=== PATIENT | female | born 1995 | race Caucasian/White ===

== ENCOUNTER 2017-11-14 19:34 | Emergency (ER) | payer OTHER ==
[2017-11-14 19:49] VITALS: BP 122/82
[2017-11-14] MEDS ORDERED: DEXAMETHASONE 10 MG/ML VIAL PO STA (20:37)
--- NOTE | 2017-11-14 20:41 | ED Physician Documentation ---
PD HPI HEENT - Stated complaint Stated Complaint: THROAT/EAR PX - Chief complaint Chief Complaint: Heent - History obtained from History obtained from: Patient - History of Present Illness Timing - onset: Other (2-3 days of sore throat, worse on the left with myalgias and chills. Today he has had some left-sided headaches as well. No cough or runny nose.) Review of Systems Constitutional: reports: Fever, Chills, Myalgias, Fatigue, Sweats Ears: denies: Ear pain Nose: denies: Rhinorrhea / runny nose Throat: reports: Sore throat PD PAST MEDICAL HISTORY - Past Medical History Past Medical History: No Cardiovascular: None Respiratory: None Neuro: None Endocrine/Autoimmune: None GI: None BOAT CARPENTER: None : None HEENT: None Psych: None Musculoskeletal: None Derm: None - Past Surgical History Past Surgical History: No - Present Medications Home Medications: Ambulatory Orders Medication Instructions Recorded Confirmed Testosterone Cypionate 11/14/17 [Depo-Testosterone] - Allergies Allergies/Adverse Reactions: Allergies Allergy/AdvReac Type Severity Reaction Status Date / Time No Known Drug Allergies Allergy Verified 11/14/17 19:48 - Social History Does the pt smoke?: Yes Smoking Status: Current every day smoker Does the pt drink ETOH?: Yes Does the pt have substance abuse?: No - Immunizations Immunizations are current?: Yes - POLST Patient has POLST: No PD ED PE NORMAL - Vitals Vital signs reviewed: Yes - General General: Alert and oriented X 3, No acute distress - HEENT HEENT: PERRL, EOMI, Ears normal, Other (Tonsillar pillars are red with some ulcers consistent viral pharyngitis, she does have anterior cervical adenopathy , supple neck.) - Derm Derm: No rash - Neuro Neuro: Alert and oriented X 3, Normal speech Results - Vitals Vitals: Vital Signs - 24 hr 11/14/17 11/14/17 19:45 21:05 Temperature 38.0 C H Heart Rate 79 Respiratory 18 17 Rate Blood Pressure 122/82 H O2 Saturation 99 Oxygen O2 Source Room air - Labs Labs: Laboratory Tests 11/14/17 11/14/17 20:05 20:48 Infectious Hart Assay NEGATIVE Group A Strep Rapid Negative Departure - Departure Disposition: 01 Home, Self Care Clinical Impression: Viral pharyngitis Condition: Good Record reviewed to determine appropriate education?: Yes Instructions: ED Pharyngitis Viral Report Pending Comments: Ibuprofen as needed for pain, drink plenty of fluids. Return if worse. Should be much better by Friday.
[2017-11-14] MEDS ORDERED: HYDROcod/ACETAM 5/325 MG TABLET PO STA (20:53)
[2017-11-14] MEDS ORDERED: CHERRY SYRUP 10 ML UDC PO ONE (20:53)
[2017-11-14] MEDS ORDERED: HYDROcod/ACET 5/325 Prepack 4 PO STA (21:17)
== END 2017-11-14 21:32 | disposition home or self-care (01) ==
LOC: ED 19:34
DX: J02.8 Acute pharyngitis due to other specified organisms (principal); B97.89 Other viral agents as the cause of diseases classified elsewhere; F17.200 Nicotine dependence, unspecified, uncomplicated
CPT/HCPCS: 86308; 87070; 87077; 87430; 99283; A9270

== ENCOUNTER 2017-11-16 10:35 | Emergency (ER) | payer OTHER ==
--- NOTE | 2017-11-16 11:21 | ED Physician Documentation ---
History of Present Illness - Stated complaint Stated Complaint: SORE THROAT - Chief complaint Chief Complaint: Heent - History obtained from History obtained from: Patient - History of Present Illness Timing: How many days ago (3) Pain level max: 6 Pain level now: 4 Improved by: rest Worsened by: swallowing - Additonal information Additional information: States has had a sore throat x 4 days. Seen here 2 days ago for same. States not improved yet. Subjective fevers at home. Not taking anything for the sore throat. Review of Systems Constitutional: reports: Fever Ears: denies: Ear pain Nose: denies: Rhinorrhea / runny nose, Congestion Cardiac: denies: Chest pain / pressure GI: denies: Nausea, Vomiting, Diarrhea : denies: Now EGA Skin: denies: Rash Musculoskeletal: denies: Neck pain, Back pain Neurologic: denies: Headache PD PAST MEDICAL HISTORY - Past Medical History Cardiovascular: None Respiratory: None Neuro: None Endocrine/Autoimmune: None GI: None MEAT INSPECTOR: None : None HEENT: None Psych: None Musculoskeletal: None Derm: None - Past Surgical History Past Surgical History: No - Present Medications Home Medications: Ambulatory Orders Medication Instructions Recorded Confirmed Testosterone Cypionate 11/14/17 [Depo-Testosterone] Ibuprofen [Motrin] 800 mg PO Q8H PRN #30 tablet 11/16/17 Penicillin V Potassium 500 mg PO Q6HR #40 tablet 11/16/17 - Allergies Allergies/Adverse Reactions: Allergies Allergy/AdvReac Type Severity Reaction Status Date / Time No Known Drug Allergies Allergy Verified 11/14/17 19:48 - Social History Does the pt smoke?: Yes Smoking Status: Current every day smoker Does the pt drink ETOH?: Yes Does the pt have substance abuse?: No - Immunizations Immunizations are current?: Yes - POLST Patient has POLST: No PD ED PE NORMAL - Vitals Vital signs reviewed: Yes - General General: Alert and oriented X 3, No acute distress - HEENT HEENT: PERRL, Ears normal, Moist mucous membranes, Other (Moderate posterior oropharyngeal erythema with tonsillar exudates. Uvula midline. Normal phonation. No trismus) - Neck Neck: Supple, no meningeal sign, Other (Shotty anterior lymphadenopathy) - Cardiac Cardiac: RRR - Respiratory Respiratory: No respiratory distress, Clear bilaterally - Abdomen Abdomen: Soft, Non tender, Non distended, No organomegaly - Back Back: No CVA TTP - Derm Derm: Warm and dry, No rash - Neuro Neuro: Alert and oriented X 3 - Psych Psych: Normal mood, Normal affect Results - Vitals Vitals: Vital Signs - 24 hr 11/16/17 11/16/17 10:39 11:59 Temperature 38.5 C H 39.1 C H Heart Rate 97 95 Respiratory 17 20 Rate Blood Pressure 130/76 111/75 O2 Saturation 99 100 Oxygen O2 Source Room air - Labs Labs: Laboratory Tests 11/16/17 10:46 Group A Strep Rapid Negative PD MEDICAL DECISION MAKING - ED course Complexity details: reviewed old records, reviewed results, re-evaluated patient , considered differential, d/w patient ED course: Patient is a 22-year-old female who presents to the emergency department with what appears to be streptococcal pharyngitis, group C strep grout of her last throat culture [address] on antibiotics and follow-up closely with her doctor. Also given dexamethasone here. She is well-appearing, nontoxic. No evidence of peritonsillar abscess. Patient counseled regarding signs and symptoms for which I believe and urgent re-evaluation would be necessary. Patient with good understanding of and agreement to plan and is comfortable going home at this time This document was made in part using voice recognition software. While efforts are made to proofread this document, sound alike and grammatical errors may occur. Departure - Departure Disposition: 01 Home, Self Care Clinical Impression: Strep pharyngitis Condition: Good Instructions: ED Strep Pharyngitis Conf Follow-Up: Provider,Other [Primary Care Provider] - Within 1 week Prescriptions: Penicillin V Potassium 500 mg PO Q6HR #40 tablet Ibuprofen [Motrin] 800 mg PO Q8H PRN #30 tablet PRN Reason: PAIN &/OR FEVER Comments: Return if you worsen. Take all antibiotics until gone. Drink plenty of fluids. Cold items such as popsicles will also help with the discomfort. Forms: Activity restrictions Discharge Date/Time: 11/16/17 12:03
[2017-11-16] MEDS ORDERED: DEXAMETHASONE 10 MG/ML VIAL PO STA (11:44)
[2017-11-16] MEDS ORDERED: IBUPROFEN 800 MG TABLET PO STA (11:55)
[2017-11-16 11:59] VITALS: BP 111/75
== END 2017-11-16 12:03 | disposition home or self-care (01) ==
LOC: ED 10:35
DX: J02.0 Streptococcal pharyngitis (principal); F17.200 Nicotine dependence, unspecified, uncomplicated
CPT/HCPCS: 87070; 87430; 99283; A9270

== ENCOUNTER 2017-11-18 17:22 | Emergency (ER) | payer OTHER ==
--- NOTE | 2017-11-18 18:49 | ED Physician Documentation ---
PD HPI URI - Stated complaint Stated Complaint: CHEST WALL PX/BURNING - Chief complaint Chief Complaint: General - History obtained from History obtained from: Patient - History of Present Illness Timing - onset: How many days ago (5-6) Timing duration: Days Timing details: Abrupt onset, Still present Associated symptoms: Fever, Sore throat, Swollen nodes Contributing factors: No: Sick contact, Travel, Immunocompromised Similar symptoms before: Has not had sx before Recently seen: Emergency Dept (had sore throat with neg rapid strep but culture showed strep C. Rx with Pen VK on repeat visit. Not improving though after 3 days fo meds.) Review of Systems Constitutional: reports: Fever, Chills Ears: denies: Ear pain Nose: denies: Rhinorrhea / runny nose, Congestion Throat: reports: Sore throat, Swollen tonsils Cardiac: denies: Chest pain / pressure Respiratory: denies: Dyspnea, Cough GI: reports: Nausea. 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 : None HEENT: None Psych: None Musculoskeletal: None Derm: None - Past Surgical History Past Surgical History: No - Present Medications Home Medications: Ambulatory Orders Medication Instructions Recorded Confirmed Testosterone Cypionate 11/14/17 [Depo-Testosterone] Ibuprofen [Motrin] 800 mg PO Q8H PRN #30 tablet 11/16/17 Penicillin V Potassium 500 mg PO Q6HR #40 tablet 11/16/17 Cephalexin [Keflex] 500 mg PO QID #24 capsule 11/18/17 Dexamethasone [Decadron] 4 mg PO DAILY #5 tablet 11/18/17 HYDROcod/ACETAM 5/325 [[place] 5/325] 1 tab PO Q6H PRN #15 tablet 11/18/17 Ondansetron Odt [Zofran] 4 mg TL Q6H PRN #15 tablet 11/18/17 - Allergies Allergies/Adverse Reactions: Allergies Allergy/AdvReac Type Severity Reaction Status Date / Time No Known Drug Allergies Allergy Verified 11/18/17 17:35 - Social History Does the pt smoke?: Yes Smoking Status: Current every day smoker Does the pt drink ETOH?: No Does the pt have substance abuse?: No - Immunizations Immunizations are current?: Yes - POLST Patient has POLST: No PD ED PE NORMAL - Vitals Vital signs reviewed: Yes - General General: Alert and oriented X 3, Well developed/nourished - HEENT HEENT: No: Pharynx benign (tonsils enlarged with exudate, but no peritonsillar swelling. ) - Neck Neck: Supple, no meningeal sign, Other (anterior adenopathy.) - Cardiac Cardiac: RRR, No murmur - Respiratory Respiratory: Clear bilaterally - Derm Derm: Normal color, Warm and dry, No rash Results - Vitals Vitals: Oxygen O2 Source Room air PD MEDICAL DECISION MAKING - ED course Complexity details: reviewed results, considered differential (had culture positive strep c and not improving with Pen VK. will change to keflex and add steroids. ), d/w patient Departure - Departure Disposition: 01 Home, Self Care Clinical Impression: Strep pharyngitis Chest pain Qualifiers: Chest pain type: unspecified Qualified Code(s): R07.9 - Chest pain, unspecified Condition: Stable Record reviewed to determine appropriate education?: Yes Instructions: ED Strep Pharyngitis Conf, ED Chest Pain Pleurisy Follow-Up: [facility] [Provider Group] Prescriptions: Cephalexin [Keflex] 500 mg PO QID #24 capsule Dexamethasone [Decadron] 4 mg PO DAILY #5 tablet HYDROcod/ACETAM 5/325 [[place] 5/325] 1 tab PO Q6H PRN #15 tablet PRN Reason: Pain Ondansetron Odt [Zofran] 4 mg TL Q6H PRN #15 tablet PRN Reason: Nausea / Vomiting Comments: Stop the penicillin and changed to cephalexin since you have not had much improvement on the current antibiotic as yet. Also add Decadron steroid anti- inflammatory daily for 5 more days. Ondansetron if needed for nausea. Tylenol or ibuprofen for mild pains and add hydrocodone for worse pain. Small frequent fluids. Recheck if not improving over the next couple of days. Rest for the next few days. Forms: Activity restrictions Discharge Date/Time: 11/18/17 22:13
[2017-11-18] MEDS ORDERED: DEXAMETHASONE 10 MG/ML VIAL IVP STA (18:59)
[2017-11-18] MEDS ORDERED: ONDANSETRON 4 MG/2 ML VIAL IVP STA (18:59)
[2017-11-18] MEDS ORDERED: SODIUM CHLORIDE 0.9% 1,000 ML IV ONE ×2 (18:59→19:00)
[2017-11-18] MEDS ORDERED: MAG HYDROX/AL HYDROX/SIMETH 30 ML UDC PO STA (18:59)
[2017-11-18] MEDS ORDERED: LIDOCAINE VISCOUS 2% 15 ML UDC MM STA (18:59)
[2017-11-18] MEDS ORDERED: KETOROLAC 30 MG/ML VIAL IVP STA (18:59)
[2017-11-18] MEDS ORDERED: cefTRIAXone 1 GM in SODIUM CHLORIDE 0.9% MINIBAG 100 ML IV STA (19:00)
[2017-11-18] MEDS ORDERED: HYDROmorphone 1 MG/ML CARPUJECT IVP STA (20:39)
--- NOTE | 2017-11-18 21:21 | XRAY Preliminary Report ---
Exam: XR CHEST 2 VIEW X-RAY IMPRESSION: Normal 2-view chest radiography. [facility] SITE ID: [id number]
--- NOTE | 2017-11-18 21:22 | XRAY Report ---
EXAM: CHEST RADIOGRAPHY EXAM DATE: 11/18/2017 09:12 PM. CLINICAL HISTORY: Across back, with sore throat and cough. COMPARISON: None. TECHNIQUE: 2 views. FINDINGS: Lungs/Pleura: No focal opacities evident. No pleural effusion. No pneumothorax. Normal volumes. Mediastinum: Heart and mediastinal contours are unremarkable. Other: None. IMPRESSION: Normal 2-view chest radiography. [facility] Referring Provider Line: [phone] SITE ID: [id number]
[2017-11-18 21:40] VITALS: BP 118/86
[2017-11-18] MEDS ORDERED: ONDANSETRON ODT 4 MG Prepack 2 TL PRN (21:48)
[2017-11-18] MEDS ORDERED: HYDROcod/ACET 5/325 Prepack 4 PO STA (21:48)
== END 2017-11-18 22:13 | disposition home or self-care (01) ==
LOC: ED 17:22
DX: J02.0 Streptococcal pharyngitis (principal); R07.9 Chest pain, unspecified; F17.200 Nicotine dependence, unspecified, uncomplicated
CPT/HCPCS: 71046; 93005; 96361; 96365; 96375; 99283; 99284; A9270; J1170